=== PATIENT | male | born 1950 | race Caucasian/White ===

== ENCOUNTER 2016-11-03 10:40 | Day surgery (SDC) | payer MEDICARE, OTHER ==
[2016-10-29 12:01] VITALS: BMI 34.4
[~2016-11-03 10:40] MED LIST: LACTATED RINGERS 1,000 ML IV SCH; LIDOCAINE 1% 20 ML VIAL (10MG/ML) FOR IV START INTRADERMA PRN
[2016-11-03 12:30] VITALS: TEMP 97
[2016-11-03] MEDS ORDERED: PROPOFOL 10 MG/ML 20 ML VIAL IV ONE (12:38)
[2016-11-03] MEDS ORDERED: IV FLUID CONTINUATION 1,000 ML IV ONE (13:01)
[2016-11-03 13:04] VITALS: BP 123/86; PULSE 88; RESP 16
--- NOTE | 2016-11-03 13:31 | P.PCN ---
Date of Procedure: 11/03/16 Procedure(s) Performed: Procedure: Total colonoscopy. Preoperative diagnosis: Screening for neoplasia, patient has family history of colon cancer. Postoperative diagnosis: Mild sigmoid diverticulosis with no evidence of acute diverticulitis, strictures, polyps or cancer. Preparation: HalfLytely prep. Sedation was provided by anesthesia. Brief clinical history: The patient is 65-year-old male who is scheduled for this evaluation for screening for neoplasia because of family history of colon cancer in his son who at age 32. The patient's only colonoscopy was November 2009. Procedure: With the patient on his left lateral decubitus position and after informed consent and adequate sedation, the perianal area was inspected and it did not show any fissures or fistulas. There were no masses felt on digital rectal examination. The Olympus CFQ 160L video colonoscope was then inserted in the rectum in the usual fashion and advanced to the cecum. There was a rare diverticular orifice seen in the sigmoid with no evidence of acute diverticulitis or strictures. The mucosa appeared healthy. No polyps or tumors were seen. I retroflexed endoscope in the rectum before the endoscope was withdrawn. The patient tolerated the procedure well. Plan: The patient was reassured. Discussed dietary measures. With his family history I recommended repeat exam in 5 years. He will follow up with you as planned.
== END 2016-11-03 13:36 | disposition home or self-care (01) ==
LOC: ORWHC2ENDO 10:40
DX: Z12.11 Encounter for screening for malignant neoplasm of colon (principal); Z80.0 Family history of malignant neoplasm of digestive organs; K57.30 Diverticulosis of large intestine without perforation or abscess without bleeding; E78.5 Hyperlipidemia, unspecified; Z79.899 Other long term (current) drug therapy
CPT/HCPCS: J2704; G0105

== ENCOUNTER → 2016-11-11 | Outpatient (CLI) | payer MEDICARE, OTHER ==
--- NOTE | 2016-11-11 09:51 | US ---
EXAMINATION TYPE: US abdomen complete DATE OF EXAM: 11/11/2016 9:03 AM COMPARISON: 09/14/2014 CLINICAL HISTORY: Elevated Liver Functions R94.5. elevated labs, no complaints of pain, larger habitu s EXAM MEASUREMENTS: Liver Length: 19.2 cm Gallbladder Wall: 0.4 cm CBD: 0.4 cm Spleen: 10.4 cm Right Kidney: 10.3 x 4.4 x 6.0 cm Left Kidney: 12.4 x 6.4 x 6.4 cm Some exam limitations due to patient size and overlying bowel gas. Pancreas: Obscured by bowel gas Liver: hepatomegaly, attenuating Gallbladder: thickened wall, adherent debris Evidence for sonographic Child's sign: no CBD: wnl Spleen: wnl Right Kidney: seen with a few scattered cysts, largest about mid to lower pole measuring 2.1cm Left Kidney: seen with a 1.1cm cyst at the lower pole Upper IVC: Obscured by overlying bowel gas Abd Aorta: very limited visualization due to obscured by overlying bowel gas The liver is homogenous. The intrahepatic portion of the IVC and proximal abdominal aorta are within normal limits. There is no evidence of cholelithiasis. Common bile duct is unremarkable. The visu alized portions of the pancreas are homogenous. The spleen is unremarkable. Kidneys are symmetric a nd free of hydronephrosis. No renal lesions are seen. IMPRESSION: 1. Liver demonstrates a heterogeneously increased pattern which can be seen with hepatitis, hepatocel lular disease or fatty infiltration. 2. The gallbladder wall is somewhat thickened measuring 4 mm and contains internal debris or sludge. Correlate for cholecystitis. 3. Simple renal cysts
== END | disposition home or self-care (01) ==
LOC: RADUSWWP 08:43
PROVIDERS: ATTEND Internal Medicine
DX: N28.1 Cyst of kidney, acquired (principal); R16.0 Hepatomegaly, not elsewhere classified
CPT/HCPCS: 76700